=== PATIENT | female | born 1945 | race Caucasian/White ===

== ENCOUNTER 2023-03-11 12:02 | Inpatient (IN) ==
[2023-03-11] MEDS ORDERED: ACETAMINOPHEN 1,000 MG/100 ML BAG IV ONE (12:28)
[2023-03-11] MEDS ORDERED: 0.9 % SODIUM CHLORIDE 1,000 ML IV ONE (12:28)
[2023-03-11 12:52] LABS: POC Calcium, Ionized 1.04 (1.16-1.32); POC Creatinine 1.2 (0.6-1.2); POC Potassium 3.3 (3.3-5.1)
[2023-03-11] MEDS ORDERED: 0.9 % SODIUM CHLORIDE 1,000 ML IV SCH (14:45)
[2023-03-11 15:21] LABS: Hematocrit 41.9 % (34.1-44.9); Hemoglobin 14.5 g/dL (11.2-15.7); Mean Cell Volume 88.2 fL (80.0-100.0); Mean Corpuscular HGB Conc 34.6 g/dL (31.0-36.0); Mean Platelet Volume 12.5 fL (8.8-12.5); Platelet Count 138 K/mcL (140-440); RBC 4.75 M/mcL (3.59-5.38); Red Cell Distribution Width 13.3 % (11.5-14.5); WBC 60.3 K/mcL (4.5-11.0)
[2023-03-11 17:18] LABS: ALT/SGPT 28 U/L (<40)
[2023-03-11 17:19] LABS: AST/SGOT 34 U/L (<32)
[2023-03-11] MEDS ORDERED: ONDANSETRON 4 MG/2 ML VIAL IV PRN (17:39)
[2023-03-11] MEDS ORDERED: ACETAMINOPHEN 325 MG TABLET PO PRN (17:39)
[2023-03-11] MEDS ORDERED: REMDESIVIR 200 MG in 0.9 % SODIUM CHLORIDE 250 ML IV ONE (18:00)
[2023-03-11] MEDS: 0.9 % SODIUM CHLORIDE 1,000 ML IV SCH ×2 (18:38→23:20)
[2023-03-11] MEDS: DOCUSATE SODIUM 100 MG CAPSULE PO SCH (20:21)
[2023-03-11] MEDS: 0.9 % SODIUM CHLORIDE 10 ML SYRINGE IV SCH (20:21)
[2023-03-11] MEDS: ENOXAPARIN 40 MG/0.4 ML SYRINGE SQ SCH (20:21)
[2023-03-11] MEDS: SENNOSIDES 1 TABLET PO SCH (20:21)
[2023-03-11] MEDS ORDERED: LISINOPRIL 10 MG TABLET PO ONE (23:36)
[2023-03-11] MEDS ORDERED: hydrALAZINE 20 MG/ML VIAL IV PRN (23:37)
[2023-03-11] MEDS ORDERED: LISINOPRIL 10 MG TABLET ONE (23:51)
[2023-03-12] MEDS: 0.9 % SODIUM CHLORIDE 10 ML SYRINGE IV SCH ×3 (05:57→20:19)
[2023-03-12 07:49] LABS: ALT/SGPT 23 U/L (<40); AST/SGOT 27 U/L (<32); Albumin 4.2 gm/dL (3.2-5.2); Alkaline Phosphatase 97 U/L (39-117); Bilirubin,Direct < 0.2 mg/dL (0-0.3); Bilirubin,Total 0.5 mg/dL (0.1-1.0); Blood Urea Nitrogen 11 mg/dL (8-23); Calcium 8.7 mg/dL (8.6-10.4); Carbon Dioxide 24 mmol/L (22-30); Chloride 90 mmol/L (96-108); Globulin 2.1 gm/dL (2.2-3.7); Glomerular Filtration Rate 71; Glucose 99 mg/dL (70-105); Lactate Dehydrogenase 433 U/L (135-225); Phosphorous 2.6 mg/dL (2.5-4.5); Triglycerides 124 mg/dL (<150); Uric Acid 3.8 mg/dL (2.5-8.0)
[2023-03-12] MEDS: ENOXAPARIN 40 MG/0.4 ML SYRINGE SQ SCH (08:43)
[2023-03-12] MEDS: 0.9 % SODIUM CHLORIDE 1,000 ML IV SCH ×4 (08:47→23:24)
[2023-03-12] MEDS ORDERED: LISINOPRIL 10 MG TABLET PO SCH (09:00)
[2023-03-12 09:16] LABS: Hematocrit 41.5 % (34.1-44.9); Hemoglobin 13.7 g/dL (11.2-15.7); Mean Platelet Volume 11.4 fL (8.8-12.5); Platelet Count 132 K/mcL (140-440); RBC 4.51 M/mcL (3.59-5.38); Red Cell Distribution Width 13.5 % (11.5-14.5); WBC 64.6 K/mcL (4.5-11.0)
[2023-03-12] MEDS ORDERED: POTASSIUM CHLORIDE 20 MEQ TABLET PO ONE (09:47)
[2023-03-12] MEDS ORDERED: REMDESIVIR 100 MG in 0.9 % SODIUM CHLORIDE 250 ML IV SCH (11:00)
[2023-03-12] MEDS: DOCUSATE SODIUM 100 MG CAPSULE PO SCH ×2 (11:34→20:19)
[2023-03-12] MEDS: OMEPRAZOLE 20 MG CAPSULE PO SCH (17:32)
[2023-03-12] MEDS ORDERED: guaiFENesin 600 MG TAB.SR.12H PO PRN (18:03)
[2023-03-12] MEDS: HYDROXYCHLOROQUINE 200 MG TABLET PO SCH (20:19)
[2023-03-12] MEDS: SENNOSIDES 1 TABLET PO SCH (20:19)
[2023-03-12] MEDS ORDERED: CYCLOBENZAPRINE 10 MG TABLET PO PRN (21:00)
[2023-03-13] MEDS: 0.9 % SODIUM CHLORIDE 1,000 ML IV SCH ×2 (03:25→08:56)
[2023-03-13] MEDS: 0.9 % SODIUM CHLORIDE 10 ML SYRINGE IV SCH (05:26)
[2023-03-13 06:56] LABS: ALT/SGPT 20 U/L (<40); AST/SGOT 22 U/L (<32); Albumin 3.5 gm/dL (3.2-5.2); Albumin/Globulin Ratio 1.7 (1.0-2.3); Alkaline Phosphatase 81 U/L (39-117); Bilirubin,Direct < 0.2 mg/dL (0-0.3); Bilirubin,Total 0.4 mg/dL (0.1-1.0); Blood Urea Nitrogen 9 mg/dL (8-23); Calcium 8.3 mg/dL (8.6-10.4); Carbon Dioxide 19 mmol/L (22-30); Chloride 100 mmol/L (96-108); Globulin 2.1 gm/dL (2.2-3.7); Glomerular Filtration Rate 71; Glucose 96 mg/dL (70-105); Lactate Dehydrogenase 419 U/L (135-225); Phosphorous 2.3 mg/dL (2.5-4.5); Triglycerides 96 mg/dL (<150); Uric Acid 3.7 mg/dL (2.5-8.0)
[2023-03-13] MEDS: OMEPRAZOLE 20 MG CAPSULE PO SCH (07:28)
[2023-03-13] MEDS: HYDROXYCHLOROQUINE 200 MG TABLET PO SCH (08:54)
[2023-03-13] MEDS: ENOXAPARIN 40 MG/0.4 ML SYRINGE SQ SCH (08:54)
[2023-03-13] MEDS: DOCUSATE SODIUM 100 MG CAPSULE PO SCH (08:54)
[2023-03-13] MEDS ORDERED: LISINOPRIL 20 MG TABLET PO SCH (09:00)
[2023-03-13 09:36] LABS: Hematocrit 37.4 % (34.1-44.9); Hemoglobin 12.4 g/dL (11.2-15.7); Mean Cell Volume 91.9 fL (80.0-100.0); Mean Corpuscular HGB Conc 33.2 g/dL (31.0-36.0); Mean Platelet Volume 11.2 fL (8.8-12.5); Platelet Count 140 K/mcL (140-440); RBC 4.07 M/mcL (3.59-5.38); WBC 64.3 K/mcL (4.5-11.0)
== END 2023-03-13 13:25 | disposition home or self-care (01) | DRG 640 ==
LOC: ED 12:02 → MEDSUR 17:21
PROVIDERS: ADMIT Internal Medicine; ATTEND Internal Medicine

== ENCOUNTER 2023-08-16 10:00 | Inpatient (IN) ==
[2023-08-16] MEDS ORDERED: IOPAMIDOL 100 ML BOTTLE IV ONE (10:01)
[2023-08-16 11:33] LABS: ALT/SGPT 8 U/L (<40); AST/SGOT 23 U/L (<32); Albumin 4.4 gm/dL (3.2-5.2); Albumin/Globulin Ratio 2.2 (1.0-2.3); Alkaline Phosphatase 98 U/L (39-117); Amylase 49 U/L (28-100); Bilirubin,Total 0.4 mg/dL (0.1-1.0); Blood Urea Nitrogen 14 mg/dL (8-23); Calcium 9.6 mg/dL (8.6-10.4); Carbon Dioxide 21 mmol/L (22-30); Chloride 98 mmol/L (96-108); Glomerular Filtration Rate 48; Glucose 96 mg/dL (70-105)
[2023-08-16 11:45] LABS: Appearance,Urine Clear (Clear); Bilirubin,Urine Negative (Negative); Color,Urine Yellow; Culture Indicated,Urine No; Glucose,Urine (UA) Negative (Negative); Ketones,Urine Negative (Negative); Leukocyte Esterase,Urine Negative /uL (Negative); Nitrate,Urine Negative (Negative); Protein,Urine Negative (Negative); Urine Blood Trace-intact ery/mcL (Negative); Urine RBC 1 /hpf (0-3); Urine Squamous Epithelial Cell 0 /hpf (0-4); Urine WBC 0 /hpf (0-4); Urobilinogen,Urine Normal
[2023-08-16] MEDS: PIPERACILLIN SODIUM/TAZOBACTAM 3.375 GM in DEXTROSE 5% IN WATER 50 ML IV ONE (12:27)
[2023-08-16 12:30] LABS: Hematocrit 37.7 % (34.1-44.9); Mean Cell Volume 92.9 fL (80.0-100.0); Mean Corpuscular HGB Conc 31.8 g/dL (31.0-36.0); Mean Platelet Volume 11.5 fL (8.8-12.5); Platelet Count 178 K/mcL (140-440); RBC 4.06 M/mcL (3.59-5.38); Red Cell Distribution Width 14.4 % (11.5-14.5); WBC 92.7 K/mcL (4.5-11.0)
[2023-08-16] MEDS: morphine 4 MG/ML VIAL IV ONE ×2 (12:48→14:49)
[2023-08-16] MEDS: 0.9 % SODIUM CHLORIDE 1,000 ML IV ONE (13:08)
[2023-08-16] MEDS: KETOROLAC 30 MG/ML VIAL IV ONE (13:57)
[2023-08-16] MEDS: LACTATED RINGERS 1,000 ML IV SCH (17:49)
[2023-08-16] MEDS: metroNIDAZOLE 500 MG/100 ML BAG IV SCH (18:11)
[2023-08-16] MEDS: ACETAMINOPHEN 1,000 MG/100 ML BAG IV SCH (18:14)
[2023-08-16] MEDS: cefTRIAXone 2 GM in DEXTROSE 5% IN WATER 50 ML IV SCH (19:01)
[2023-08-16] MEDS: cefTRIAXone 2 GM VIAL ONE (19:02)
[2023-08-16] MEDS: HYDROmorphone 0.5 MG/0.5 ML SYRINGE IV PRN ×2 (19:10→23:45)
[2023-08-16] MEDS: 0.9 % SODIUM CHLORIDE 10 ML SYRINGE IV SCH (21:46)
[2023-08-16] MEDS ORDERED: HYDROmorphone 0.5 MG/0.5 ML SYRINGE IV SCH (23:45)
[2023-08-16] MEDS: ZOLPIDEM 5 MG TABLET PO PRN (23:46)
[2023-08-17] MEDS: ZOLPIDEM 5 MG TABLET ONE (00:11)
[2023-08-17] MEDS: HYDROmorphone 0.5 MG/0.5 ML SYRINGE ONE ×2 (00:11→05:01)
[2023-08-17] MEDS ORDERED: HYDROmorphone 0.5 MG/0.5 ML SYRINGE IV PRN (06:30)
[2023-08-17 06:35] LABS: ALT/SGPT 47 U/L (<40); AST/SGOT 60 U/L (<32); Albumin 4.1 gm/dL (3.2-5.2); Albumin/Globulin Ratio 2.6 (1.0-2.3); Alkaline Phosphatase 158 U/L (39-117); Bilirubin,Direct < 0.2 mg/dL (0-0.3); Bilirubin,Total 0.4 mg/dL (0.1-1.0); Blood Urea Nitrogen 13 mg/dL (8-23); C-Reactive Protein 8.94 mg/dL (0.03-0.80); Carbon Dioxide 26 mmol/L (22-30); Chloride 100 mmol/L (96-108); Globulin 1.6 gm/dL (2.2-3.7); Glomerular Filtration Rate 54; Glucose 94 mg/dL (70-105); Lactate Dehydrogenase 434 U/L (135-225); Phosphorous 4.3 mg/dL (2.5-4.5); Triglycerides 70 mg/dL (<150); Uric Acid 4.5 mg/dL (2.5-8.0)
[2023-08-17 07:28] LABS: Hemoglobin 11.7 g/dL (11.2-15.7); Mean Cell Volume 94.1 fL (80.0-100.0); Mean Corpuscular HGB Conc 31.6 g/dL (31.0-36.0); Mean Platelet Volume 11.7 fL (8.8-12.5); Platelet Count 184 K/mcL (140-440); RBC 3.93 M/mcL (3.59-5.38); Red Cell Distribution Width 14.6 % (11.5-14.5); WBC 98.5 K/mcL (4.5-11.0)
[2023-08-17] MEDS: ENOXAPARIN 40 MG/0.4 ML SYRINGE SQ SCH (08:49)
[2023-08-17] MEDS: oxyCODONE IR 5 MG TABLET PO PRN (13:22)
[2023-08-17] MEDS: ONDANSETRON 4 MG/2 ML VIAL IV PRN (17:40)
[2023-08-18 08:10] LABS: ALT/SGPT 31 U/L (<40); AST/SGOT 29 U/L (<32); Albumin 3.5 gm/dL (3.2-5.2); Albumin/Globulin Ratio 1.8 (1.0-2.3); Alkaline Phosphatase 127 U/L (39-117); Bilirubin,Direct < 0.2 mg/dL (0-0.3); Bilirubin,Total 0.3 mg/dL (0.1-1.0); Blood Urea Nitrogen 8 mg/dL (8-23); Calcium 8.9 mg/dL (8.6-10.4); Carbon Dioxide 25 mmol/L (22-30); Chloride 100 mmol/L (96-108); Glomerular Filtration Rate 83; Glucose 98 mg/dL (70-105); Lactate Dehydrogenase 416 U/L (135-225); Phosphorous 2.8 mg/dL (2.5-4.5); Triglycerides 72 mg/dL (<150)
[2023-08-18] MEDS: 0.9 % SODIUM CHLORIDE 1,000 ML IV ONE (08:44)
[2023-08-18] MEDS: CALCIUM CARBONATE 500 MG TAB.CHEW CHEWED PRN (16:27)
[2023-08-19] MEDS: SENNOSIDES 1 TABLET PO PRN (05:13)
[2023-08-19 06:16] LABS: ALT/SGPT 21 U/L (<40); AST/SGOT 20 U/L (<32); Albumin 3.4 gm/dL (3.2-5.2); Albumin/Globulin Ratio 1.6 (1.0-2.3); Alkaline Phosphatase 120 U/L (39-117); Bilirubin,Direct < 0.2 mg/dL (0-0.3); Bilirubin,Total 0.3 mg/dL (0.1-1.0); Blood Urea Nitrogen 6 mg/dL (8-23); Calcium 8.8 mg/dL (8.6-10.4); Carbon Dioxide 21 mmol/L (22-30); Chloride 101 mmol/L (96-108); Globulin 2.1 gm/dL (2.2-3.7); Glomerular Filtration Rate 88; Glucose 88 mg/dL (70-105); Lactate Dehydrogenase 425 U/L (135-225); Phosphorous 2.1 mg/dL (2.5-4.5); Triglycerides 55 mg/dL (<150); Uric Acid 3.1 mg/dL (2.5-8.0)
[2023-08-19] MEDS: PANTOPRAZOLE 40 MG VIAL IV SCH (09:52)
[2023-08-19] MEDS: AMPICILLIN SODIUM/SULBACTAM NA 3 GM in 0.9 % SODIUM CHLORIDE 100 ML IV SCH (10:59)
[2023-08-19] MEDS: LISINOPRIL 20 MG TABLET PO SCH (11:43)
[2023-08-19] MEDS: NYSTATIN 500,000 UNITS/5 ML ORAL.SUSP SSW SCH (14:07)
[2023-08-19] MEDS: LACTATED RINGERS 1,000 ML IV SCH (14:49)
[2023-08-19] MEDS ORDERED: LEVOFLOXACIN 750 MG/150 ML BAG IV SCH (16:00)
[2023-08-19] MEDS: metroNIDAZOLE 500 MG/100 ML BAG IV SCH (17:17)
[2023-08-19] MEDS: CIPROFLOXACIN 400 MG/200 ML BAG IV SCH (17:18)
[2023-08-19] MEDS: SENNOSIDES/DOCUSATE SODIUM 1 TAB TABLET PO SCH (21:29)
[2023-08-19] MEDS: cloNIDine HCL 0.1 MG TABLET PO SCH (21:30)
[2023-08-20 07:01] LABS: ALT/SGPT 16 U/L (<40); AST/SGOT 20 U/L (<32); Albumin 3.4 gm/dL (3.2-5.2); Alkaline Phosphatase 106 U/L (39-117); Bilirubin,Direct < 0.2 mg/dL (0-0.3); Bilirubin,Total 0.3 mg/dL (0.1-1.0); Blood Urea Nitrogen 6 mg/dL (8-23); Calcium 8.8 mg/dL (8.6-10.4); Carbon Dioxide 26 mmol/L (22-30); Chloride 100 mmol/L (96-108); Globulin 1.7 gm/dL (2.2-3.7); Glomerular Filtration Rate 83; Glucose 99 mg/dL (70-105); Lactate Dehydrogenase 369 U/L (135-225); Phosphorous 2.2 mg/dL (2.5-4.5); Triglycerides 77 mg/dL (<150); Uric Acid 3.4 mg/dL (2.5-8.0)
[2023-08-20 07:15] LABS: Hematocrit 32.4 % (34.1-44.9); Hemoglobin 10.1 g/dL (11.2-15.7); Mean Cell Volume 94.5 fL (80.0-100.0); Mean Corpuscular HGB Conc 31.2 g/dL (31.0-36.0); Mean Platelet Volume 10.9 fL (8.8-12.5); Platelet Count 189 K/mcL (140-440); RBC 3.43 M/mcL (3.59-5.38); Red Cell Distribution Width 14.5 % (11.5-14.5); WBC 71.3 K/mcL (4.5-11.0)
[2023-08-20] MEDS: MAGNESIUM SULFATE 2 GM/50 ML BAG IV ONE (09:58)
[2023-08-20] MEDS: POTASSIUM CHLORIDE 40 MEQ in DEXTROSE 5% IN WATER 500 ML IV ONE (09:59)
[2023-08-20] MEDS: metroNIDAZOLE 500 MG/100 ML BAG IV SCH (14:31)
[2023-08-20] MEDS: CIPROFLOXACIN 400 MG/200 ML BAG IV ONE (21:52)
[2023-08-21 07:56] LABS: ALT/SGPT 26 U/L (<40); AST/SGOT 44 U/L (<32); Albumin 3.7 gm/dL (3.2-5.2); Albumin/Globulin Ratio 2.1 (1.0-2.3); Alkaline Phosphatase 107 U/L (39-117); Bilirubin,Direct < 0.2 mg/dL (0-0.3); Bilirubin,Total 0.3 mg/dL (0.1-1.0); Blood Urea Nitrogen 7 mg/dL (8-23); Calcium 9.2 mg/dL (8.6-10.4); Carbon Dioxide 25 mmol/L (22-30); Chloride 102 mmol/L (96-108); Globulin 1.8 gm/dL (2.2-3.7); Glomerular Filtration Rate 83; Glucose 102 mg/dL (70-105); Lactate Dehydrogenase 374 U/L (135-225); Phosphorous 2.2 mg/dL (2.5-4.5); Triglycerides 97 mg/dL (<150); Uric Acid 3.8 mg/dL (2.5-8.0)
[2023-08-21] MEDS: CIPROFLOXACIN 500 MG TABLET PO ONE (11:29)
[2023-08-21] MEDS: metroNIDAZOLE 500 MG TABLET PO ONE (11:29)
== END 2023-08-21 13:45 | disposition home or self-care (01) | DRG 392 ==
LOC: ED 10:00 → MEDSUR 17:40
PROVIDERS: ADMIT Internal Medicine; ATTEND Internal Medicine